=== PATIENT | male | born 1985 | race Caucasian/White ===

== ENCOUNTER 2022-03-01 18:30 | Inpatient (IN) | payer SELFPAY ==
[~2022-03-01] VITALS: Ht 162.5 cm; Wt 83.5 kg
[~2022-03-01 18:30] MED LIST: CLARITIN10 MG PO; EPI EZ PEN1 MG/ML IM
[2022-03-01 18:47] VITALS: BP 132/83
[2022-03-01] MEDS ORDERED: Smz-Tmp Ds 800-160m (18:48)
[2022-03-01 19:32] LABS: HEMATOCRIT 42.4 % (42.0-52.0); MEAN CORPUSCULAR HGB 29.9 pg (27.0-31.0); MEAN PLATELET VOLUME 9.6 fl (9.6-12.3); PLATELET COUNT AUTOMATED 282 10*3/uL (130-400); RED BLOOD COUNT 4.82 10*6/uL (4.50-5.90); WHITE BLOOD COUNT 20.8 10*3/uL (4.8-10.8)
[2022-03-01 19:34] LABS: MANUAL DIFF REFLEX YES
[2022-03-01 19:43] LABS: ACT PARTIAL THROMBO TIME 33.5 SECONDS (20.0-32.1)
[2022-03-01 19:47] LABS: ALKALINE PHOSPHATASE 72 U/L (45-117); BUN 11 mg/dl (7-24); CHLORIDE 109 mmol/L (98-107); CREATININE 0.78 mg/dL (0.70-1.30); POTASSIUM 3.5 mmol/L (3.5-5.1); SGOT/AST 11 IU/L (3-35); SGPT/ALT 24 U/L (12-78); SODIUM 139 mmol/L (136-145); TOTAL PROTEIN 7.2 gm/dL (6.4-8.2)
[2022-03-01 19:56] LABS: TOTAL CELLS COUNTED 100 #CELLS
[2022-03-01 19:57] LABS: PLATELET SUFFICIENCY NORMAL (NORMAL)
[2022-03-01 23:21] VITALS: BP 141/81
[2022-03-02] VITALS: BP 132/54
[2022-03-02 06:15] LABS: CHLORIDE 112 mmol/L (98-107); POTASSIUM 4.1 mmol/L (3.5-5.1); SODIUM 139 mmol/L (136-145)
[2022-03-02 06:32] LABS: BUN 13 mg/dl (7-24); CREATININE 0.78 mg/dL (0.70-1.30); FREE T4 1.39 ng/dl (0.76-1.46); THYROID STIM HORMONE (HS) 0.336 uIU/ml (0.358-4.75)
[2022-03-02 06:39] LABS: HEMATOCRIT 41.5 % (42.0-52.0); MEAN CELL VOLUME 90.6 fl (80.0-94.0); MEAN CORPUSCULAR HGB 30.6 pg (27.0-31.0); MEAN CORPUSCULAR HGB CONC 33.7 g/dl (33.0-37.0); MEAN PLATELET VOLUME 9.9 fl (9.6-12.3); PLATELET COUNT AUTOMATED 276 10*3/uL (130-400); RED BLOOD COUNT 4.58 10*6/uL (4.50-5.90); RED CELL DISTRI WIDTH 13.1 % (0-14.5); WHITE BLOOD COUNT 19.2 10*3/uL (4.8-10.8)
[2022-03-02 07:34] LABS: MANUAL DIFF REFLEX YES
[2022-03-02 07:37] LABS: BASOPHILS 1 % (0-1); PLATELET SUFFICIENCY NORMAL (NORMAL); TOTAL CELLS COUNTED 100 #CELLS
[2022-03-02 08:00] VITALS: BP 115/66
[2022-03-02 12:00] VITALS: BP 118/70
[2022-03-02 16:00] VITALS: BP 125/81
[2022-03-02 20:00] VITALS: BP 127/71
[2022-03-03] VITALS: BP 128/76
[2022-03-03 07:30] LABS: BASO # 0.1 10*3/uL (0.0-0.1); BASO % 0.4 % (0.0-1.0); EOS % 0.2 % (1.0-4.0); HEMATOCRIT 40.8 % (42.0-52.0); LYMPH # 1.3 10*3/uL (1.3-4.4); LYMPH % 7.2 % (27.0-41.0); MEAN CELL VOLUME 89.3 fl (80.0-94.0); MEAN CORPUSCULAR HGB 30.4 pg (27.0-31.0); MEAN CORPUSCULAR HGB CONC 34.1 g/dl (33.0-37.0); MEAN PLATELET VOLUME 9.3 fl (9.6-12.3); MONO # 1.5 10*3/uL (0.1-1.0); MONO % 8.4 % (3.0-9.0); NEUT # 14.9 10*3/uL (2.3-7.9); NEUT % 83.4 % (47.0-73.0); PLATELET COUNT AUTOMATED 252 10*3/uL (130-400); RED BLOOD COUNT 4.57 10*6/uL (4.50-5.90); WHITE BLOOD COUNT 17.9 10*3/uL (4.8-10.8)
[2022-03-03 07:43] LABS: BUN 12 mg/dl (7-24); CHLORIDE 115 mmol/L (98-107); CREATININE 1.07 mg/dL (0.70-1.30); POTASSIUM 3.8 mmol/L (3.5-5.1); SODIUM 142 mmol/L (136-145)
[2022-03-03 08:00] VITALS: BP 131/74
[2022-03-03 11:50] VITALS: BP 142/79
[2022-03-03 12:00] VITALS: BP 131/82
[2022-03-03 13:48] VITALS: BP 118/73
[2022-03-03 14:03] VITALS: BP 124/81
[2022-03-03] MEDS ORDERED: VIBRAMYCIN HYC100 MG PO (15:43)
[2022-03-04] MEDS ORDERED: ZYVOX600 MG PO (14:24)
== END 2022-03-03 17:00 | disposition home or self-care (01) | DRG 603 ==
LOC: ED 18:30 → 5E 21:40 → EDHOLD 21:40 → 5E 22:11
PROVIDERS: Family Medicine; Nurse Practitioner Family; Student in an Organized Health Care Education/Training Program; ADMIT Emergency Medicine; ATTEND Emergency Medicine
PROC: 0J9K0ZZ Drainage of Left Hand Subcutaneous Tissue and Fascia, Open Approach (ICD-10-PCS; principal; 2022-03-03)
DX: L03.114 Cellulitis of left upper limb (principal); L02.512 Cutaneous abscess of left hand; M65.9 Synovitis and tenosynovitis, unspecified; E87.8 Other disorders of electrolyte and fluid balance, not elsewhere classified; F41.9 Anxiety disorder, unspecified; G47.00 Insomnia, unspecified; B95.62 Methicillin resistant Staphylococcus aureus infection as the cause of diseases classified elsewhere; Z82.49 Family history of ischemic heart disease and other diseases of the circulatory system; Z80.3 Family history of malignant neoplasm of breast; Z88.1 Allergy status to other antibiotic agents; T63 Toxic effect of contact with venomous animals and plants; Z88.8 Allergy status to other drugs, medicaments and biological substances; Y92.89 Other specified places as the place of occurrence of the external cause

== ENCOUNTER 2024-01-31 15:52 | Emergency (ER) | payer OTHER ==
[~2024-01-31] VITALS: Ht 180.3 cm; Wt 83.9 kg
[~2024-01-31 15:52] MED LIST changes: +Smz-Tmp Ds 800-160m; +VIBRAMYCIN HYC100 MG PO; +ZYVOX600 MG PO
[2024-01-31 16:47] LABS: BASO # 0.1 10*3/uL (0.0-0.1); BASO % 0.4 % (0.0-1.0); EOS % 0.2 % (1.0-4.0); HEMATOCRIT 46.9 % (42.0-52.0); LYMPH # 1.9 10*3/uL (1.3-4.4); LYMPH % 13.5 % (27.0-41.0); MEAN CELL VOLUME 90.2 fl (80.0-94.0); MEAN CORPUSCULAR HGB 30.4 pg (27.0-31.0); MEAN CORPUSCULAR HGB CONC 33.7 g/dl (33.0-37.0); MEAN PLATELET VOLUME 9.1 fl (9.6-12.3); MONO # 0.7 10*3/uL (0.1-1.0); MONO % 5.2 % (3.0-9.0); NEUT # 11.3 10*3/uL (2.3-7.9); NEUT % 80.3 % (47.0-73.0); PLATELET COUNT AUTOMATED 314 10*3/uL (130-400); RED CELL DISTRI WIDTH 12.6 % (0-14.5); WHITE BLOOD COUNT 14.1 10*3/uL (4.8-10.8)
[2024-01-31 17:06] LABS: BUN 8 mg/dl (9-23); CHLORIDE 104 mmol/L (98-107); POTASSIUM 4.1 mmol/L (3.4-5.1)
== END 2024-01-31 18:10 | disposition home or self-care (01) ==
LOC: ED 15:52
PROVIDERS: Physician Assistant Medical
DX: R07.89 Other chest pain (principal); I10 Essential (primary) hypertension; Z88.1 Allergy status to other antibiotic agents; Z90.89 Acquired absence of other organs; Z98.890 Other specified postprocedural states; F12.90 Cannabis use, unspecified, uncomplicated

== ENCOUNTER → 2024-05-09 | Outpatient (CLI) | payer OTHER | END | disposition home or self-care (01) | LOC: RAD 17:40 | PROVIDERS: ATTEND Internal Medicine | DX: M25.512 Pain in left shoulder (principal) ==

== ENCOUNTER → 2024-06-06 | Outpatient (CLI) | payer OTHER ==
[~2024-06-06] MED LIST changes: +Regadenoson 0.4 MG/5 ML SYR IV ONE; +ZESTRIL,PRINIVIL5 MG PO
== END | disposition home or self-care (01) ==
LOC: CARD 01:38
PROVIDERS: ATTEND Internal Medicine Cardiovascular Disease
DX: R07.89 Other chest pain (principal)

== ENCOUNTER → 2024-06-27 | Outpatient (CLI) | payer OTHER ==
[~2024-06-27] MED LIST changes: -Regadenoson 0.4 MG/5 ML SYR IV ONE
== END | disposition home or self-care (01) ==
LOC: MRI 06-26 08:00
PROVIDERS: ATTEND Internal Medicine
DX: M47.812 Spondylosis without myelopathy or radiculopathy, cervical region (principal); M85.88 Other specified disorders of bone density and structure, other site; M25.512 Pain in left shoulder; R20.0 Anesthesia of skin; M54.6 Pain in thoracic spine

== ENCOUNTER → 2024-06-29 | Outpatient (CLI) | payer OTHER | END | disposition home or self-care (01) | LOC: MRI 06-23 08:00 | PROVIDERS: ATTEND Internal Medicine | DX: M25.512 Pain in left shoulder (principal); R20.0 Anesthesia of skin; M54.6 Pain in thoracic spine ==

== ENCOUNTER 2024-07-26 18:16 | Emergency (ER) | payer OTHER ==
[~2024-07-26] VITALS: Ht 180.3 cm; Wt 90.7 kg
[2024-07-26] MEDS ORDERED: Lidocaine Hydrochloride 15 ML UDC PO STA (18:37)
[2024-07-26] MEDS ORDERED: MG-AL HYDROXIDE/SIMETICONE 30 ML UDC PO STA (18:37)
[2024-07-26] MEDS ORDERED: Dicyclomine Hydrochloride 20 MG/10 ML OSYR PO STA (18:37)
[2024-07-26 18:53] LABS: BASO # 0.1 10*3/uL (0.0-0.1); BASO % 0.6 % (0.0-1.0); EOS # 0.1 10*3/uL (0.0-0.4); EOS % 0.9 % (1.0-4.0); HEMATOCRIT 47.5 % (42.0-52.0); MEAN CELL VOLUME 90.6 fl (80.0-94.0); MEAN CORPUSCULAR HGB 30.5 pg (27.0-31.0); MEAN CORPUSCULAR HGB CONC 33.7 g/dl (33.0-37.0); MEAN PLATELET VOLUME 8.8 fl (9.6-12.3); MONO % 7.2 % (3.0-9.0); NEUT # 10.4 10*3/uL (2.3-7.9); NEUT % 74.7 % (47.0-73.0); PLATELET COUNT AUTOMATED 330 10*3/uL (130-400); RED BLOOD COUNT 5.24 10*6/uL (4.50-5.90); RED CELL DISTRI WIDTH 12.8 % (0-14.5)
[2024-07-26 19:08] LABS: ALKALINE PHOSPHATASE 78 U/L (46-116); BUN 9 mg/dl (9-23); CHLORIDE 103 mmol/L (98-107); LIPASE 32 U/L (12-53); POTASSIUM 3.9 mmol/L (3.4-5.1); SGPT/ALT 42 U/L (5-49); TOTAL PROTEIN 7.4 gm/dL (6.0-8.0)
[2024-07-26] MEDS ORDERED: PEPCID20 MG PO (19:36)
[2024-07-26] MEDS ORDERED: FAMOTIDINE 20 MG TAB PO ONE (19:40)
== END 2024-07-26 20:47 | disposition home or self-care (01) ==
LOC: ED 18:16
PROVIDERS: Physician Assistant Medical
DX: K29.70 Gastritis, unspecified, without bleeding (principal); I10 Essential (primary) hypertension; F17.200 Nicotine dependence, unspecified, uncomplicated; Z88.1 Allergy status to other antibiotic agents; Z79.899 Other long term (current) drug therapy; Z90.89 Acquired absence of other organs

== ENCOUNTER → 2024-08-31 | Day surgery (SDC) | payer OTHER ==
[~2024-08-31] VITALS: Ht 180.3 cm; Wt 81.6 kg
[~2024-08-31] MED LIST changes: +Lactated Ringer's Solution 500 ML IV ONE; +Lidocaine Hydrochloride 2% 10 ML AMP IM ONE; +PEPCID20 MG PO; +PROPOFOL 200 MG/20 ML VIAL IV ONE; +fentaNYL CITRATE 100 MCG/2 ML VIAL IV ONE
[2024-08-31 07:20] VITALS: BP 133/88
[2024-08-31 07:41] VITALS: BP 108/53
[2024-08-31 07:56] VITALS: BP 102/64
[2024-08-31 08:11] VITALS: BP 118/67
== END | disposition home or self-care (01) ==
LOC: SDC 08-29 10:15
PROVIDERS: ATTEND Surgery
DX: R10.12 Left upper quadrant pain (principal); K21.9 Gastro-esophageal reflux disease without esophagitis; R10.13 Epigastric pain; R19.7 Diarrhea, unspecified; I10 Essential (primary) hypertension; F41.9 Anxiety disorder, unspecified; R79.82 Elevated C-reactive protein (CRP); Z90.89 Acquired absence of other organs; Z88.1 Allergy status to other antibiotic agents; Z98.890 Other specified postprocedural states; Z79.899 Other long term (current) drug therapy; Z80.3 Family history of malignant neoplasm of breast; Z82.49 Family history of ischemic heart disease and other diseases of the circulatory system

== ENCOUNTER → 2024-09-26 | Outpatient (CLI) | payer OTHER ==
[~2024-09-26] MED LIST changes: +IOHEXOL 300 MG/ML 100 ML VIAL IV ONE; -Lactated Ringer's Solution 500 ML IV ONE; -Lidocaine Hydrochloride 2% 10 ML AMP IM ONE; -PROPOFOL 200 MG/20 ML VIAL IV ONE; -fentaNYL CITRATE 100 MCG/2 ML VIAL IV ONE
== END | disposition home or self-care (01) ==
LOC: US 07:21 → CT 09:00
PROVIDERS: ATTEND Internal Medicine
DX: J98.11 Atelectasis (principal); R10.9 Unspecified abdominal pain; R63.4 Abnormal weight loss

== ENCOUNTER → 2024-10-04 | Outpatient (CLI) | payer OTHER ==
[~2024-10-04] MED LIST changes: -IOHEXOL 300 MG/ML 100 ML VIAL IV ONE
== END | disposition home or self-care (01) ==
LOC: LAB 10-03 04:09
PROVIDERS: ATTEND Internal Medicine
DX: R10.12 Left upper quadrant pain (principal); R63.4 Abnormal weight loss; R11.10 Vomiting, unspecified; R19.5 Other fecal abnormalities

== ENCOUNTER → 2024-10-25 | Outpatient (CLI) | payer OTHER | END | disposition home or self-care (01) | LOC: LAB 03:00 | PROVIDERS: Nurse Practitioner Family; ATTEND Internal Medicine | DX: R19.4 Change in bowel habit (principal); R10.9 Unspecified abdominal pain ==

== ENCOUNTER → 2025-02-28 | Outpatient (CLI) | payer OTHER | END | disposition home or self-care (01) | LOC: RAD 00:18 | DX: R10.12 Left upper quadrant pain (principal); R10.11 Right upper quadrant pain ==

== ENCOUNTER → 2025-05-18 | Outpatient (CLI) | payer OTHER ==
[~2025-05-18] MED LIST changes: +SINCALIDE 5 MCG VIAL IV SCH; +SINCALIDE IV ONE; +SODIUM CHLORIDE 0.9% IV ONE; +Technetium Tc 99M Mebrofenin 1 KIT KIT IV SCH
== END | disposition home or self-care (01) ==
LOC: NM 03:42
PROVIDERS: ATTEND Internal Medicine
DX: R10.9 Unspecified abdominal pain (principal)